=== PATIENT | male | born 1940 | race Caucasian/White ===

== ENCOUNTER 2020-05-04 14:03 | Outpatient (CLI) | payer MEDICARE ==
[~2020-05-04] VITALS: Ht 180.3 cm; Wt 66.7 kg
[2020-05-04 14:19] VITALS: BP 109/53
--- NOTE | 2020-05-04 17:00 | Consultation ---
DATE OF CONSULTATION: 05/04/2020 CONSULTING PHYSICIAN: Aditya Hewitt MD REASON FOR REFERRAL: Referral from Dr. Willis for endoscopy and colonoscopy. HISTORY OF PRESENT ILLNESS: This is a 80-year-old male with past medical history of lung cancer status post treatment, presented with diarrhea for about 8 months. Apparently, his stool studies have been negative. No new medication. No change in diet. The patient has been having severe diarrhea. PAST MEDICAL HISTORY: 1. Diabetes. 2. Atrial fibrillation. 3. Hypercholesteremia. 4. Anemia. 5. Kidney stones. 6. Hemorrhoids. 7. Lung cancer. PAST SURGICAL HISTORY: 1. Partial lobectomy. 2. Tonsillectomy. 3. Right hernia repair. MEDICATIONS: Please see medication reconciliation list. The patient currently on Eliquis. FAMILY HISTORY: Noncontributory. SOCIAL HISTORY: The patient denies any tobacco, alcohol, or drug abuse. REVIEW OF SYSTEMS: Positive for diarrhea for 8 months. ALLERGIES: No known drug allergy. PHYSICAL EXAMINATION: VITAL SIGNS: Temperature 98.2, blood pressure 109/53, pulse is 70, respirations 20. Height is 5 feet 11 inches, weight is 147. HEENT: Normocephalic, atraumatic. Sclerae anicteric. NECK: Supple. No evidence of obvious lymphadenopathy. CARDIOVASCULAR: Regular rate and rhythm. Plus S1-S2. LUNGS: Clear to auscultation bilaterally. ABDOMEN: Positive bowel sounds. Soft and nontender. No rebound. No guarding. No peritoneal sign. EXTREMITIES: No cyanosis. No clubbing. No edema. ASSESSMENT AND PLAN: This is a 80-year-old male with chronic diarrhea for about 8 months. Plan, patient to be scheduled for endoscopy and colonoscopy to rule out microscopic colitis to rule out celiac disease. On the procedure day, we are going to also recommend getting celiac check. Meanwhile, patient was told to start on Imodium p.r.n. I want to thank Dr. Willis for this kind referral. Aditya Hewitt M.D. DR: BLANCO JOB#: [id number] CC: Nando Willis MD
[2020-05-05] MEDS ORDERED: VITAMIN D325 MC1 PO (10:41)
[2020-05-05] MEDS ORDERED: ELIQUIS5 MG ORAL (10:41)
[2020-05-05] MEDS ORDERED: MULTIVITAMINS1 EAC2 ORAL (10:41)
[2020-05-05] MEDS ORDERED: COQ-10100 M1 PO (10:41)
[2020-05-05] MEDS ORDERED: CHONDROITIN SU MC (10:41)
[2020-05-05] MEDS ORDERED: ATORVASTATIN CA10 MG ORAL (10:41)
[2020-05-05] MEDS ORDERED: VITAMIN B122500 MCG PO (10:41)
[2020-05-05] MEDS ORDERED: FERROUS SULFAT325 MG ORAL (10:41)
[2020-05-05] MEDS ORDERED: FLOMAX0.4 MG ORAL (10:41)
[2020-05-05] MEDS ORDERED: VITAMIN C500 M1 ORAL (10:41)
[2020-05-05] MEDS ORDERED: ACTOS30 MG ORAL (10:41)
[2020-05-05] MEDS ORDERED: METFORMIN HCL500 M1 ORAL (10:41)
[2020-05-05] MEDS ORDERED: DIGOXIN250 MCG ORAL (10:41)
[2020-05-05] MEDS ORDERED: FISH OIL CAP1000 MG ORAL (10:41)
== END 2020-05-04 15:19 | disposition home or self-care (01) ==
LOC: PAN 14:03
DX: R19.7 Diarrhea, unspecified (principal); Z85.118 Personal history of other malignant neoplasm of bronchus and lung; E11.9 Type 2 diabetes mellitus without complications; E78.00 Pure hypercholesterolemia, unspecified; Z87.442 Personal history of urinary calculi; Z79.01 Long term (current) use of anticoagulants
CPT/HCPCS: G0463

== ENCOUNTER 2020-05-22 09:31 | Day surgery (SDC) | payer MEDICARE ==
[2020-05-22] VITALS (8 sets, daily range): BP systolic 114–128; BP diastolic 59–73
[~2020-05-22] VITALS: Ht 180.3 cm; Wt 68.0 kg
--- NOTE | 2020-05-22 07:19 | Anethesia Preoperative Eval ---
Anesthesia Pre-op PMH/ROS General Date of Evaluation: May 22, 2020 Time of Evaluation: 07:16 Anesthesiologist: meggan ASA Score: ASA 4 Mallampati Score Class I : Soft palate, uvula, fauces, pillars visible Class II: Soft palate, uvula, fauces visible Class III: Soft palate, base of uvula visible Class IV: Only hard plate visible Mallampati Classification: Class II Surgeon: antonieta Diagnosis: gerd, colon screeing Surgical Procedure: egd/colonoscopy Anesthesia History: none Social History: smoking - nonsmoker Family History: no anesthesia problems Allergies: Coded Allergies: No Known Allergies (Unverified , 05/22/20) Medications: see eMAR Patient NPO?: Yes Past Medical History Cardiovascular: Reports: arrhythmia, other - pacemaker, hypercholesterolemia Pulmonary: Reports: other - lung ca Gastrointestinal/Genitourinary: Reports: other - kidney stones, enlarged prostate Endocrine: Reports: DM Hematology/Immune: Reports: other - anticoagulant tx PSxH Narrative: lung sx Anesthesia Pre-op Phys. Exam Physician Exam Last Vital Signs Date Time Temp Pulse Resp B/P (MAP) Pulse Ox O2 Delivery O2 Flow Rate FiO2 05/22/20 10:24 98.1 70 16 114/59 98 Room Air Constitutional: NAD Neurologic: CN 2-12 intact Cardiovascular: other Respiratory: CTA Gastrointestinal: S/NT/ND Airway Exam Mallampati Score: Class II MO: limited Neck: flexible TMD: 2fb ROM: limited Anesthesia Pre-op A/P Labs Labs Test 05/22/20 10:37 Microbiology Date/Time Source Procedure Growth Status 05/19/20 11:07 Nasopharynx SARS-CoV-2 RdRp Gene Assay - Final Complete Studies Pre-op Studies: EKG - ventricular paced Risk Assessment & Plan Assessment: asa4 Plan: mac Status Change Before Surgery: No Pre-Antibiotics Drug: Georgina Chamorro MD May 22, 2020 07:19
[~2020-05-22 09:31] MED LIST: ACTOS30 MG ORAL; ATORVASTATIN CA10 MG ORAL; Atropine Inj 1mg/10ml Syr IVP PRN; CHONDROITIN SU MC; COQ-10100 M1 PO; DIGOXIN250 MCG ORAL; DiphenhydrAMINE 50mg/ml Inj IVP PRN; ELIQUIS5 MG ORAL; FERROUS SULFAT325 MG ORAL; FISH OIL CAP1000 MG ORAL; FLOMAX0.4 MG ORAL; LR 1000ml 1,000 ML IVLG SCH; Labetalol 5mg/ml 20ml vial IV PRN; METFORMIN HCL500 M1 ORAL; MULTIVITAMINS1 EAC2 ORAL; Midazolam 2mg/2ml Inj IVP PRN; VITAMIN B122500 MCG PO; VITAMIN C500 M1 ORAL; VITAMIN D325 MC1 PO; fentaNYL 100 mcg/2 mL IV PRN
--- NOTE | 2020-05-22 11:26 | Pre-Procedure Note/Attestation ---
Pre-Procedure Note/Attestation Complete Prior to Procedure Planned Procedure: not applicable Procedure Narrative: esophagogastroduodenoscopy and colonoscopy Indications for Procedure Pre-Operative Diagnosis: gerd, screening colon Attestation I attest that I discussed the nature of the procedure; its benefits; risks and complications; and alternatives (and the risks and benefits of such al ternatives), prior to the procedure, with the patient (or the patient's legal student services representative). I attest that, if there was a reasonable possibility of needing a blood transfusion, the patient (or the patient's legal student services representative) was given the [facility] standardized written summary, pursuant to the Adalberto Chitina Blood Safety Act ([place] Health and Safety Code # 1645, as amended). I attest that I re-evaluated the patient just prior to the surgery and that there has been no change in the patient's H&P, except as documented below: Aditya Hewitt MD May 22, 2020 11:26
--- NOTE | 2020-05-22 11:27 | Short Stay Surgery H&P ---
History of Present Illness History of Present Illness Chief Complaint see office consult note HPI Sina Brown is a 80 year old male who was admitted on for Gerd, Colon Screening Patient History Allergies: Coded Allergies: No Known Allergies (Unverified , 05/22/20) Medication History Scheduled Apixaban (Eliquis*), 5 MG ORAL BID, (Reported) Ascorbic Acid* (Vitamin C*), 500 MG ORAL DAILY, (Reported) Atorvastatin Calcium* (Lipitor*), 10 MG ORAL BEDTIME, (Reported) Cholecalciferol (Vitamin D3) (Vitamin D3*), 25 MCG PO DAILY, (Reported) Digoxin* (Digoxin*), 0.25 MG ORAL DAILY, (Reported) Ferrous Sulfate* (Ferrous Sulfate*), 325 MG ORAL DAILY, (Reported) Fish Oil (Fish Oil 1,000 mg Capsule), 1,000 MG ORAL DAILY, (Reported) Metformin Hcl* (Metformin Hcl*), 1,000 MG ORAL TWICE A DAY, (Reported) Multivitamins* (Multivitamins*), 1 TAB ORAL DAILY, (Reported) Pioglitazone Hcl* (Actos*), 30 MG ORAL DAILY, (Reported) Tamsulosin HCl (Flomax), 0.4 MG ORAL DAILY, (Reported) Miscellaneous Medications Chondroitin Sulfate A Sodium (Chondroitin Sulfate), 1,000 GM MC, (Reported) Cyanocobalamin (Vitamin B-12) (Vitamin B12), 1,000 MCG PO, (Reported) Ubidecarenone (Coq-10), 100 MG PO, (Reported) Physical Exam Vital Signs Last Vital Signs Date Time Temp Pulse Resp B/P (MAP) Pulse Ox O2 Delivery O2 Flow Rate FiO2 05/22/20 10:24 98.1 70 16 114/59 98 Room Air Labs Laboratory Tests Test 05/22/20 10:37 POC Whole Blood Glucose Pending Plan Attestation Are the patient's medical conditions optimized for surgery? Aditya Hewitt MD May 22, 2020 11:27
[2020-05-22] MEDS ORDERED: LR 1000ml ONE (11:30)
[2020-05-22] MEDS ORDERED: Lidocaine 1% MPF 10mg/ml 5ml ONE (11:30)
--- NOTE | 2020-05-22 12:42 | Immediate Post-Op Evaluation ---
Immediate Post-Op Evalulation Immediate Post-Op Evalulation Procedure: egd/colonoscopy w/ bx Date of Evaluation: May 22, 2020 Time of Evaluation: 12:27 IV Fluids: 550ml lr Blood Products: none Estimated Blood Loss: negligible Blood Pressure Systolic: 122 Blood Pressure Diastolic: 68 Pulse Rate: 70 Respiratory Rate: 18 O2 Sat by Pulse Oximetry: 100 Temperature (Fahrenheit): 97.8 Pain Score (1-10): 0 Nausea: No Vomiting: No Complications none Patient Status: awake, reacts, patent Hydration Status: adequate Drug: Georgina Chamorro MD May 22, 2020 12:42
--- NOTE | 2020-05-22 12:43 | 48 Hour Post Anesthesia Eval ---
Post Anesthesia Evaluation Procedure: egd/colonoscopy w/ bx Date of Evaluation: May 22, 2020 Time of Evaluation: 12:43 Blood Pressure Systolic: 122 0: 73 Pulse Rate: 67 Respiratory Rate: 18 Temperature (Fahrenheit): 97.8 O2 Sat by Pulse Oximetry: 100 Airway: patent Nausea: No Vomiting: No Pain Intensity: 0 Hydration Status: adequate Cardiopulmonary Status: stable Mental Status/LOC: patient returned to baseline Post-Anesthesia Complications: none Follow-up care needed: N/A Georgina Khoury MD May 22, 2020 12:43
--- NOTE | 2020-05-22 15:15 | Procedure Note ---
DATE OF PROCEDURE: 05/22/2020 ENDOSCOPIST: Aditya Hewitt M.D. ANESTHESIOLOGIST: Georgina Isaacs M.D. PROCEDURE PERFORMED: Upper endoscopy with biopsy and colonoscopy with biopsy. INSTRUMENT USED: Olympus adult flexible endoscope and colonoscope. INDICATIONS FOR PROCEDURE: Diarrhea, anemia. The procedure, risks, benefits, and possible consequences, including hemorrhage, aspiration, perforation and infection, and alternative treatments, were explained to the patient/legal guardian by Dr. Aditya Hewitt and the patient/legal guardian understood and accepted these risks. DESCRIPTION OF PROCEDURE: After informed consent was obtained and the patient was adequately sedated, the Olympus upper endoscope was advanced through the mouth into the second portion of the duodenum and retroflexion maneuver was performed in the stomach. GE junction was found to be about 43 cm from the incisors. No evidence of any esophagitis. No esophageal ulceration. In the stomach, there was evidence of 1 gastric submucosal lesion in the proximal body of the stomach, measured roughly about 1 cm in size. Biopsy from this submucosal lesion was obtained. The patient had evidence of diffuse gastritis. Random biopsies from antrum were obtained to rule out H. pylori infection. The rest of upper endoscopic examination grossly looked within normal limits. At this time, the upper endoscope was retrieved. Patient was turned over for colonoscopy. First, rectal exam was performed, which was positive for internal hemorrhoids. Then, the scope was advanced from rectum into the cecum, then subsequently terminal ileum. Quality of prep overall was good except for the cecum, which was covered by semi-solid stool. TI mucosa grossly looked within normal limits. Biopsies from TI was obtained given diarrhea. We also biopsied the right and left colon to evaluate for microscopic colitis. Otherwise, the rest of the colonic examination grossly looked within normal limits. Retroflexion of rectum was performed, showed evidence of internal hemorrhoids, medium. SUMMARY OF FINDINGS: 1. Gastritis, status post biopsy. 2. A 1 cm gastric submucosal lesion, status post biopsy. May need EUS for evaluation for further evaluation. 3. Status post biopsy of the terminal ileum, right and left colon, for evaluation of diarrhea. 4. Internal hemorrhoids. RECOMMENDATIONS: 1. Follow up biopsies and treat accordingly. 2. The patient might need EUS for gastric submucosal lesion. I want to thank Dr. Willis for this kind referral. Adityashannon Hewitt M.D. DR: RUPESH JOB#: [id number] CC: Nando Willis M.D.
== END 2020-05-22 13:50 | disposition home or self-care (01) ==
LOC: GAS 09:31
DX: K29.50 Unspecified chronic gastritis without bleeding (principal); R19.7 Diarrhea, unspecified; D64.9 Anemia, unspecified; K31.9 Disease of stomach and duodenum, unspecified; K64.8 Other hemorrhoids; K21.9 Gastro-esophageal reflux disease without esophagitis; Z79.84 Long term (current) use of oral hypoglycemic drugs; E78.00 Pure hypercholesterolemia, unspecified; Z95.0 Presence of cardiac pacemaker; Z85.118 Personal history of other malignant neoplasm of bronchus and lung; E11.9 Type 2 diabetes mellitus without complications; Z87.442 Personal history of urinary calculi
CPT/HCPCS: 82962; 93005; 94003; 94150; U0002

== ENCOUNTER 2020-05-30 10:32 | Outpatient (CLI) | payer MEDICARE ==
[~2020-05-30 10:32] MED LIST changes: -Atropine Inj 1mg/10ml Syr IVP PRN; -DiphenhydrAMINE 50mg/ml Inj IVP PRN; -LR 1000ml 1,000 ML IVLG SCH; -Labetalol 5mg/ml 20ml vial IV PRN; -Midazolam 2mg/2ml Inj IVP PRN; -fentaNYL 100 mcg/2 mL IV PRN
--- NOTE | 2020-05-31 13:43 | General Progress Note ---
Subjective ROS Limited/Unobtainable: Yes Allergies: Coded Allergies: No Known Allergies (Unverified , 05/22/20) Objective General Appearance: alert EENT: normal ENT inspection Neck: supple Cardiovascular: normal rate Respiratory/Chest: decreased breath sounds Abdomen: normal bowel sounds, non tender, soft Extremities: non-tender Assessment/Plan Assessment/Plan: SUMMARY OF FINDINGS: 1. Gastritis, status post biopsy. 2. A 1 cm gastric submucosal lesion, status post biopsy. May need EUS for evaluation for further evaluation. 3. Status post biopsy of the terminal ileum, right and left colon, for evaluation of diarrhea. 4. Internal hemorrhoids. biopsies reviewed will need EUS for gastric lesion Aditya Hewitt MD May 31, 2020 13:43
== END 2020-05-30 12:32 | disposition home or self-care (01) ==
LOC: PAN 10:32
DX: K29.70 Gastritis, unspecified, without bleeding (principal); K64.8 Other hemorrhoids; K31.9 Disease of stomach and duodenum, unspecified; R19.7 Diarrhea, unspecified
CPT/HCPCS: 99212